=== PATIENT | male | born 1990 | race Caucasian/White ===

== ENCOUNTER 2022-03-05 21:30 | Inpatient (IN) | payer MEDICAID ==
[~2022-03-05] VITALS: Ht 180.3 cm; Wt 179.0 kg
[2022-03-06 00:59] LABS: Basophils # (auto) 0.1 10 ^3/uL (0-0.2); Basophils % (auto) 0.7 % (0.0-2.0); Eosinophils # (auto) 0.2 10 ^3/uL (0-0.8); Eosinophils % (auto) 2.5 % (0.0-7.0); Hematocrit 46.3 % (41.0-53.0); Hemoglobin 16.2 g/dL (13.5-17.5); Lymphocytes # (auto) 2.2 10 ^3/uL (0.4-5.4); Lymphocytes % (auto) 26.9 % (10.0-50.0); Mean Corpuscular Hemoglobin 30.8 pg (28.0-32.0); Mean Corpuscular Hgb Conc. 34.9 g/dL (32.0-36.0); Mean Corpuscular Volume 88.2 fL (80.0-100.0); Monocytes # (auto) 0.7 10 ^3/uL (0-1.3); Monocytes % (auto) 8.9 % (0.0-12.0); Neutrophils # (auto) 5.1 10 ^3/uL (1.6-8.6); Nucleated Red Blood Cells % 0.1 %; Red Blood Cells 5.25 10^6/uL (4.5-5.90); Red Cell Distribution Width 13.2 % (11.8-14.3); White Blood Cell 8.3 10^3/uL (4.4-10.8)
[2022-03-06 01:10] LABS: BUN/Creatinine Ratio 15.4; Potassium 3.2 mmol/L (3.5-5.1)
[2022-03-06 01:13] LABS: Bilirubin, Total 1.7 mg/dL (0.2-1.0); Total Protein 7.6 g/dL (6.4-8.2)
[2022-03-06] MEDS ORDERED: POTASSIUM EFFERVESENT TAB 25 MEQ PO ONE (02:45)
[2022-03-06] MEDS ORDERED: ACETAMINOPHEN 325 MG TAB PO PRN (11:30)
[2022-03-06] MEDS ORDERED: LACTATED RINGER'S 1,000 ML IV ONE (11:30)
[2022-03-06] MEDS ORDERED: HYDROcodone-ACET 5/325MG TAB PO PRN (11:30)
[2022-03-06] MEDS ORDERED: POTASSIUM CHL 20 Meq TABLET PO ONE (11:30)
[2022-03-06] MEDS ORDERED: MORPHINE SULFATE INJ 2 MG/ml SYRG IV PRN (11:30)
[2022-03-06] MEDS ORDERED: ONDANSETRON HCL 4 MG/2 ML VIAL IV PRN (11:30)
[2022-03-06 12:14] LABS: Urine Bacteria NONE SEEN /hpf (None Seen); Urine Blood Negative /uL (Negative); Urine Mucus FEW (None Seen); Urine Specific Gravity 1.029 (1.001-1.035); Urine WBC 3 /hpf (0 - 3)
[2022-03-06] MEDS: PANTOPRAZOLE 40 MG TAB PO SCH (12:14)
[2022-03-06] MEDS: ENOXAPARIN SOD 40 MG/0.4 ML SYRINGE SC SCH ×2 (12:14→21:38)
[2022-03-06] MEDS: SODIUM CHLOR 0.9% PF (SALINE LOCK) 10ML VIAL/SYR IV SCH ×2 (14:24→21:38)
[2022-03-06 14:27] LABS: BUN/Creatinine Ratio 22.6; Calcium 9.1 mg/dL (8.5-10.1); Potassium 3.3 mmol/L (3.5-5.1)
[2022-03-06 21:06] VITALS: BP 145/59
[2022-03-06] MEDS ORDERED: FURO80TA3 PO (21:13)
[2022-03-06 22:00] VITALS: BP 145/59
[2022-03-07 05:00] VITALS: BP 164/69
[2022-03-07] MEDS: SODIUM CHLOR 0.9% PF (SALINE LOCK) 10ML VIAL/SYR IV SCH ×3 (05:39→22:05)
[2022-03-07 09:45] VITALS: BP 138/76
[2022-03-07] MEDS: PANTOPRAZOLE 40 MG TAB PO SCH (12:22)
[2022-03-07] MEDS ORDERED: OMEP20TA PO (12:25)
[2022-03-07] MEDS ORDERED: AMOX200S35 PO (12:28)
[2022-03-07] MEDS: SOD CHL 0.45% WITH 20MEQ KCL 1,000 ML IV SCH (12:30)
[2022-03-07] MEDS ORDERED: PANTOPRAZOLE 40 MG/10 ML VIAL INJ IV ONE (12:30)
[2022-03-07 13:00] VITALS: BP 158/72
[2022-03-07] MEDS ORDERED: GASTROGRAFIN 120 ML SOL ONE (15:49)
[2022-03-07 17:29] VITALS: BP 160/88
[2022-03-07 22:00] VITALS: BP 149/99
[2022-03-08 05:00] VITALS: BP 147/87
[2022-03-08] MEDS: SODIUM CHLOR 0.9% PF (SALINE LOCK) 10ML VIAL/SYR IV SCH ×2 (05:05→14:00)
[2022-03-08 05:36] LABS: Potassium 3.6 mmol/L (3.5-5.1)
[2022-03-08 05:42] LABS: BUN/Creatinine Ratio 16.4; Calcium 9.4 mg/dL (8.5-10.1)
[2022-03-08 06:26] LABS: INR 1.06 (0.9-1.15); Partial Thromboplastin Time 26.9 sec (24.6-33.4)
[2022-03-08] MEDS: SOD CHL 0.45% WITH 20MEQ KCL 1,000 ML IV SCH (08:30)
[2022-03-08 09:00] VITALS: BP 159/82
[2022-03-08] MEDS ORDERED: PANTOPRAZOLE 40 MG/10 ML VIAL INJ IV SCH (10:00)
[2022-03-08 13:00] VITALS: BP 162/79
[2022-03-08 17:00] VITALS: BP 141/79
[2022-03-08 19:56] VITALS: BP 141/79
== END 2022-03-08 20:30 | disposition home or self-care (01) | DRG 254 ==
LOC: ER 21:30 → OVERFLOW 03-06 11:52 → WEST WING 03-06 20:37
PROVIDERS: ADMIT Internal Medicine; ATTEND Internal Medicine
DX: K43.6 Other and unspecified ventral hernia with obstruction, without gangrene (principal); K56.609 Unspecified intestinal obstruction, unspecified as to partial versus complete obstruction; I50.32 Chronic diastolic (congestive) heart failure; Z68.44 Body mass index [BMI] 60.0-69.9, adult; E87.6 Hypokalemia; B96.81 Helicobacter pylori [H. pylori] as the cause of diseases classified elsewhere; Z20.822 Contact with and (suspected) exposure to COVID-19; E66.01 Morbid (severe) obesity due to excess calories; Z82.49 Family history of ischemic heart disease and other diseases of the circulatory system; Z83.3 Family history of diabetes mellitus; Z90.49 Acquired absence of other specified parts of digestive tract
CPT/HCPCS: 36415; 71045; 74176; 74250; 80048; 80053; 81001; 83880; 84484; 85025; 85610; 85730; 87045; 87177; 93005; 96360; C9113; G0378